=== PATIENT | female | born 1960 | race Caucasian/White ===

== ENCOUNTER 2019-11-18 11:23 | Emergency (ER) | payer OTHER ==
[~2019-11-18] VITALS: Ht 170.2 cm; Wt 86.2 kg
== END 2019-11-18 14:11 | disposition home or self-care (01) ==
LOC: ED 11:23
DX: S50.311A Abrasion of right elbow, initial encounter (principal); Z77.21 Contact with and (suspected) exposure to potentially hazardous body fluids; X58.XXXA Exposure to other specified factors, initial encounter
CPT/HCPCS: 36415; 84460; 86703; 86707; 86803; 87350; 99283